=== PATIENT | male | born 1970 | race Caucasian/White ===

== ENCOUNTER 2023-01-19 12:14 | Emergency (ER) | payer OTHER ==
[~2023-01-19] VITALS: Ht 175 cm; Wt 104.0 kg
[~2023-01-19 12:14] MED LIST: ALPR1T PO; REFLUX MED
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
--- NOTE | 2023-01-19 12:58 | Diagnostic Imaging Report ---
PROCEDURE: CT head and CT cervical spine without contrast. TECHNIQUE: Multiple contiguous axial images were obtained through the brain and cervical spine without the use of intravenous contrast. Sagittal and coronal reformations through the cervical spine were then performed. Auto Exposure Controls were utilized during the CT exam to meet ALARA standards for radiation dose reduction. INDICATION: Head and neck injury and pain. No prior studies are available for comparison. CT HEAD: The ventricles and sulci are within normal limits. No sulcal effacement or midline shift is detected. No acute intra-axial or extra-axial hemorrhage is detected. Cisterns are patent. The visualized paranasal sinuses are clear. IMPRESSION: No acute intracranial process is detected. CT cervical spine: There is slight reversal of the normal cervical lordotic curvature. Multilevel degenerative disc disease noted, greatest C4-C5, C5-C6 and C6-C7 levels where there is moderate disc space narrowing and marginal spurring. No fractures are identified. The prevertebral tissues are within normal limits. The odontoid is intact. IMPRESSION: Cervical spondylosis. No acute bony abnormality is detected. Dictated by: Dictated on workstation # [id number]
[2023-01-19 13:16] VITALS: BP 140/93
== END 2023-01-19 13:16 | disposition home or self-care (01) ==
LOC: EDUNIT# 12:14 → ER 12:20
DX: S09.90XA Unspecified injury of head, initial encounter (principal); S00.01XA Abrasion of scalp, initial encounter; S19.9XXA Unspecified injury of neck, initial encounter; W20.8XXA Other cause of strike by thrown, projected or falling object, initial encounter; Y92.59 Other trade areas as the place of occurrence of the external cause; Y99.0 Civilian activity done for income or pay
CPT/HCPCS: 70450; 72125